=== PATIENT | male | born 1930 | race Two or more races ===

== ENCOUNTER 2017-03-07 19:28 | Emergency (ER) | payer MEDICARE, OTHER ==
[~2017-03-07] VITALS: Ht 172.7 cm; Wt 72.6 kg
--- NOTE | 2017-03-07 19:29 | Emergency Room Report ---
History of Present Illness General Chief Complaint: Vomiting Source: Patient Present Illness HPI Patient is an 86-year-old male brought in by EMS after increased abdominal pain as well as vomiting. The patient had reportedly taken several tablets. He was noted to have vomiting. The patient reports having increased generalized weakness. Patient reported epigastric abdominal cramping. 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 He denied hematemesis or bloody stool. He had prior history of bypass surgery. Allergies: Coded Allergies: No Known Allergies (Unverified , 03/07/17) Patient History Past Medical History: see triage record Nursing Documentation-PMH Hx Cardiac Problems: Yes Review of Systems All Other Systems: negative except mentioned in HPI Physical Exam Vital Signs Date Time Temp Pulse Resp B/P (MAP) Pulse Ox O2 Delivery O2 Flow Rate FiO2 03/07/17 19:18 97.3 54 16 145/57 97 Room Air Sp02 EP Interpretation: reviewed, normal General Appearance: normal inspection, well appearing, alert, moderate distress , Chronically Ill Head: atraumatic ENT: normal ENT inspection, hearing grossly normal, normal voice Neck: normal inspection, full range of motion, supple, no bony tend Respiratory: normal inspection, lungs clear, normal breath sounds, no respiratory distress, no retraction, no wheezing Cardiovascular #1: regular rate, rhythm, no edema Gastrointestinal: normal inspection, soft, no guarding, no hernia, tenderness Genitourinary: no CVA tenderness Musculoskeletal: normal inspection, back normal, normal range of motion Neurologic: normal inspection, alert, responsive, speech normal Psychiatric: normal inspection, judgement/insight normal, mood/affect normal Skin: normal inspection, normal color, no rash Medical Decision Making Diagnostic Impression: Primary Impression: Vomiting Additional Impressions: Chest pain Opiate dependence Dehydration ER Course Patient presented for chest pain and abdominal pain. Differential diagnosis included but was not limited to acute coronary syndrome, pulmonary embolism, pneumonia, aortic dissection, shingles, pneumothorax, aortic dissection, esophageal rupture, pericarditis. Because of complexity of patient's case laboratory testing and imaging studies were ordered. EKG interpretation sinus bradycardia without acute ST or T wave changes. A CT abdomen pelvis was ordered due to patient's increased abdominal pain. CT read by radiology showed vascular stenting without evidence bowel distraction or appendicitis. Dr. Pettit was contacted for for inpatient management Labs Test 03/07/17 19:45 03/07/17 20:45 White Blood Count 7.4 K/UL (4.8-10.8) Red Blood Count 5.96 M/UL (4.70-6.10) Hemoglobin 12.2 G/DL (14.2-18.0) Hematocrit 40.4 % (42.0-52.0) Mean Corpuscular Volume 68 FL (80-99) Mean Corpuscular Hemoglobin 20.4 PG (27.0-31.0) Mean Corpuscular Hemoglobin Concent 30.1 G/DL (32.0-36.0) Red Cell Distribution Width 13.3 % (11.6-14.8) Platelet Count 120 K/UL (150-450) Mean Platelet Volume 5.1 FL (6.5-10.1) Neutrophils (%) (Auto) 81.2 % (45.0-75.0) Lymphocytes (%) (Auto) 14.4 % (20.0-45.0) Monocytes (%) (Auto) 3.3 % (1.0-10.0) Eosinophils (%) (Auto) 0.6 % (0.0-3.0) Basophils (%) (Auto) 0.5 % (0.0-2.0) Prothrombin Time 10.9 SEC (9.30-11.50) Prothromb Time International Ratio 1.0 (0.9-1.1) Activated Partial Thromboplast Time 23 SEC (23-33) Sodium Level 142 MMOL/L (136-145) Potassium Level 4.6 MMOL/L (3.5-5.1) Chloride Level 106 MMOL/L (98-107) Carbon Dioxide Level 29 MMOL/L (21-32) Anion Gap 7 mmol/L (5-15) Blood Urea Nitrogen 28 mg/dL (7-18) Creatinine 1.7 MG/DL (0.55-1.30) Estimat Glomerular Filtration Rate mL/min (>60) Glucose Level 158 MG/DL (74-106) Calcium Level 9.2 MG/DL (8.5-10.1) Total Bilirubin 0.6 MG/DL (0.2-1.0) Aspartate Amino Transf (AST/SGOT) 18 U/L (15-37) Alanine Aminotransferase (ALT/SGPT) 31 U/L (12-78) Alkaline Phosphatase 65 U/L (46-116) Troponin I 0.002 ng/mL (0.000-0.056) Total Protein 7.9 G/DL (6.4-8.2) Albumin 4.4 G/DL (3.4-5.0) Globulin 3.5 g/dL Albumin/Globulin Ratio 1.3 (1.0-2.7) Lipase 152 U/L (73-393) Urine Color Yellow Urine Appearance Clear Urine pH 6 (4.5-8.0) Urine Specific [place] 1.020 (1.005-1.035) Urine Protein 1+ (NEGATIVE) Urine Glucose (UA) 4+ (NEGATIVE) Urine Ketones Negative (NEGATIVE) Urine Occult Blood 2+ (NEGATIVE) Urine Nitrite Negative (NEGATIVE) Urine Bilirubin Negative (NEGATIVE) Urine Urobilinogen Normal MG/DL (0.0-1.0) Urine Leukocyte Esterase Negative (NEGATIVE) Urine RBC 0-2 /HPF (0 - 0) Urine WBC 0-2 /HPF (0 - 0) Urine Squamous Epithelial Cells None /LPF (NONE/OCC) Urine Bacteria None /HPF (NONE) EKG Diagnostic Results Rate: bradycardiac Rhythm: NSR - 44 ST Segments: no acute changes ASA given to the pt in ED: No Rhythm Strip Diag. Results EP Interpretation: yes Rhythm: NSR, no PVC's, no ectopy Last Vital Signs Date Time Temp Pulse Resp B/P (MAP) Pulse Ox O2 Delivery O2 Flow Rate FiO2 03/07/17 19:18 97.3 54 16 145/57 97 Room Air Status: unchanged Disposition: ADMITTED INPATIENT Condition: Serious Aguilar Linares Mar 07, 2017 19:29
[2017-03-07 19:47] VITALS: BP 160/56
[2017-03-07] MEDS ORDERED: TOPROL XL25 MG ORAL (20:07)
[2017-03-07] MEDS ORDERED: PLAVIX75 MG ORAL (20:07)
[2017-03-07] MEDS ORDERED: ASPIRIN81 MG ORAL (20:07)
[2017-03-07] MEDS ORDERED: METHADONE HCL10 MG PO (20:07)
[2017-03-07] MEDS ORDERED: METFORMIN HCL500 M1 ORAL (20:07)
[2017-03-07 20:53] LABS: BASOPHILS % (AUTO) 0.5 % (0.0-2.0); EOSINOPHILS % (AUTO) 0.6 % (0.0-3.0); LYMPHOCYTES % (AUTO) 14.4 % (20.0-45.0); MEAN CORPUSCULAR HEMOGLOBIN 20.4 PG (27.0-31.0); MEAN CORPUSCULAR HGB CONC 30.1 G/DL (32.0-36.0); MEAN CORPUSCULAR VOLUME 68 FL (80-99); MEAN PLATELET VOLUME 5.1 FL (6.5-10.1); MONOCYTES % (AUTO) 3.3 % (1.0-10.0); NEUTROPHILS % (AUTO) 81.2 % (45.0-75.0); PLATELET COUNT 120 K/UL (150-450); RED BLOOD COUNT 5.96 M/UL (4.70-6.10); RED CELL DISTRIBUTION WIDTH 13.3 % (11.6-14.8); WHITE BLOOD COUNT 7.4 K/UL (4.8-10.8)
[2017-03-07 20:58] LABS: PROTHROMBIN TIME 10.9 SEC (9.30-11.50)
[2017-03-07] MEDS ORDERED: Morphine Sulfate 2mg/ml Inj IVP ONE ×2 (21:00→21:45)
[2017-03-07 21:08] LABS: ANION GAP 7 mmol/L (5-15); CALCIUM 9.2 MG/DL (8.5-10.1); CARBON DIOXIDE 29 MMOL/L (21-32); CHLORIDE 106 MMOL/L (98-107); CREATININE 1.7 MG/DL (0.55-1.30); POTASSIUM 4.6 MMOL/L (3.5-5.1); SODIUM 142 MMOL/L (136-145)
[2017-03-07 21:08] LABS: APPEARANCE,URINE CLEAR; KETONES,URINE NEGATIVE (NEGATIVE); LEUKOCYTE ESTERASE ,URINE NEGATIVE (NEGATIVE); NITRITE,URINE NEGATIVE (NEGATIVE); PH,URINE 6 (4.5-8.0); PROTEIN,URINE 1+ (NEGATIVE); UROBILINOGEN,URINE NORMAL MG/DL (0.0-1.0)
[2017-03-07 21:11] LABS: RBC,URINE 0-2 /HPF (0 - 0); WBC,URINE 0-2 /HPF (0 - 0)
[2017-03-07 21:14] LABS: ALANINE AMINOTRANSFERASE 31 U/L (12-78); ALBUMIN/GLOBULIN RATIO 1.3 (1.0-2.7); ASPARTATE AMINO TRANSFERASE 18 U/L (15-37); LIPASE 152 U/L (73-393); TOTAL PROTEIN 7.9 G/DL (6.4-8.2)
[2017-03-07 21:33] VITALS: BP 180/48
[2017-03-07] MEDS ORDERED: CARDIZEM30 M1 PO (21:39)
[2017-03-07] MEDS ORDERED: XANAX0.25 MG ORAL (21:39)
[2017-03-07] MEDS ORDERED: Morphine Sulfate 4mg/ml Inj IVP ONE (23:00)
[2017-03-07 23:45] VITALS: BP 160/60
[2017-03-08] MEDS ORDERED: Miralax 17gm pkt ORAL PRN (02:15)
[2017-03-08] MEDS ORDERED: Acetaminophen 650 MG SUPP RECTAL PRN ×2 (02:15)
[2017-03-08] MEDS ORDERED: Morphine Sulfate 4mg/ml Inj IVP PRN (02:15)
[2017-03-08] MEDS ORDERED: Morphine Sulfate 2mg/ml Inj IVP PRN (02:15)
[2017-03-08] MEDS ORDERED: Mylanta II UD 30ml ORAL PRN (02:15)
[2017-03-08] MEDS ORDERED: D5 1/2NS 1,000 ML IV SCH (03:01)
[2017-03-08] MEDS ORDERED: Docusate 100mg cap ORAL SCH (09:00)
[2017-03-08] MEDS ORDERED: Heparin 5000 units/ml inj SUBQ SCH (09:00)
--- NOTE | 2017-03-08 13:43 | Diagnostic Imaging Report ---
Indication: Abdominal pain Technique: CT of the abdomen and pelvis utilizing automated exposure control without intravenous or oral contrast. CT dose: Total DLP 682 mGycm; CTDI vol 13.68 mGy Comparison: None Findings: Please note that evaluation of the abdominal and pelvic viscera is limited without the use of intravenous and oral contrast. Within these limitations, the following observations are made: Dependent atelectasis noted in the lung bases. There is slight reticulation with some septal thickening on the right. These findings raise question for edema or possibly aspiration. Heart size within normal limits. No pericardial effusion. Coronary arterial calcifications are seen. Noncontrast evaluation of the liver, gallbladder, adrenal glands is grossly unremarkable. There is fatty atrophy of the pancreas. A hypodensity in the spleen may represent a small cyst or hemangioma. A nonobstructing stone is noted in the upper pole the right kidney. No evidence of hydronephrosis bilaterally. Bilateral extrarenal pelves noted. Bladder wall thickening versus underdistention -correlate with urinalysis to exclude a cystitis. Prostate is mildly enlarged. There is no evidence of bowel obstruction. No free intraperitoneal air or fluid. No appreciable focal bowel wall thickening or perienteric inflammatory change. Appendix is not definitively visualized. There is no focal inflammatory change in the right lower quadrant to suggest appendicitis. There is a small fat-containing right inguinal hernia. Bilateral iliac stents noted. The abdominal aorta is normal in caliber with severe atherosclerotic calcification. Calcification of the iliac arteries and femoral arteries also noted. There is no bulky abdominal or pelvic lymphadenopathy. Multilevel degenerative changes are noted in the thoracic lumbar spine. No acute osseous abnormality is seen. There is mild scoliosis in the lumbar spine. Impression: Limited evaluation without intravenous or oral contrast. Right greater than left septal thickening with nodularity raising question for mild edema or possible aspiration. Clinical correlation recommended. No bowel obstruction. No appreciable bowel wall thickening or perienteric inflammatory change. Appendix not definitively identified. Consider more sensitive evaluation with oral and IV contrast as clinically indicated. 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 Coronary artery disease. Additional findings as above. This corresponds with the statrad preliminary report. The CT scanner at [facility] is accredited by the [employer] and the scans are performed using protocols designed to limit radiation exposure to as low as reasonably achievable to attain images of sufficient resolution adequate for diagnostic evaluation.
--- NOTE | 2017-03-08 14:46 | Cardiology Report ---
APPROVED REPORT EKG Measurement Heart [id number] Sinus bradycardia Otherwise normal ECG
== END 2017-03-08 02:41 | disposition home or self-care (01) ==
LOC: EDBD 19:28 → MERGE 22:49 → EMR 22:49 → CANBEDREQ 03-08 01:08 → EMR 03-08 02:41
DX: R11.10 Vomiting, unspecified (principal); R07.9 Chest pain, unspecified; F11.20 Opioid dependence, uncomplicated; E86.0 Dehydration; R10.9 Unspecified abdominal pain
CPT/HCPCS: 36415; 74176; 80053; 81003; 82962; 83690; 84484; 85025; 85610; 85730; 86850; 86900; 86901; 93005; 96361; 96374; 96375; 96376; 99284; J2270; J2405